=== PATIENT | female | born 1975 | race Caucasian/White ===

== ENCOUNTER 2016-06-18 12:48 | Inpatient (IN) | payer OTHER ==
[~2016-06-18] VITALS: Ht 165.1 cm; Wt 70.5 kg
[~2016-06-18 12:48] MED LIST: HYDR-4150 PO; IMI25 PO
[2016-06-18 12:51] VITALS: BP 139/95; PULSE 94; RESP 18; O2SAT 97
--- NOTE | 2016-06-18 12:58 | ED.REPORT ---
HPI-Abd Pain F Under 42 Date of Service Jun 18, 2016 ED Provider: Lynn Carolina MD 40 year old female with a hx of cholecystectomy ad ruptured ovarian cyst who presents to the ED with severe epigastric abd pain with radiation to the back since 10:30 this AM. Associated symptoms include nausea, vomiting and diarrhea. She states these symptoms come in "waves." Pt was seen for this 1 weeek ago at [facility]. Records requested. Over the last week she has had a decreased appetite but has been otherwise normal since the last episode. Nursing Notes Stated Complaint: NAUSEA/STOMACH PAIN Chief Complaint: Female Abdominal Pain Nursing Notes Reviewed: Yes Allergies: Coded Allergies: No Known Allergies (Verified , 09/19/14) Scheduled PRN Hydrocodone-Acetaminophen 5-325 mg (Hydrocodone-Acetaminophen 5-325 mg) 1 Each Tablet 1-2 TABLET PO DAILY PRN PRN migraines Sumatriptan (Imitrex) 25 Mg Tablet 25 MG PO PRN PRN PRN MIGRAINES General Time Seen by MD: 12:57 Chief Complaint Abdominal pain Hx Obtained From: Patient Arrived By: Walk-in Sudden in Onset?: Yes Onset Occurred: 1 - 4 hours ago Symptom Duration: Since onset Location: : Epigastric Quality: Painful Radiation: : Flank left Severity: Current: Moderate Associated with: Reports: Nausea, Vomiting, Denies: Fever Pertinent Negative: Exacerbated by nothing Recent Healthcare: Recent doctor visit Past Medical History Past Medical History Healthy Reports: Migraines Past Surgical History Ruptured ovarian cyst Reports: , Cholecystectomy Smoking History Never Smoker Social History Alcohol Use: "Social" Drug Use: THC Ambulatory Status Independent Review of Systems Basic Review of Systems Eyes: Vision NL, No discharge ENT: Hearing NL, No pain, No nasal congestion, No pharyngeal pain Allergy / Immune: No allergy Neurologic: NL mental status, No weakness, No numbness Psychiatric: Normal thought content Constitutional: Denies: Fever Respiratory: Denies: Shortness of breath Cardiovascular: Denies: Chest pain GI: Reports: Abdominal pain, Diarrhea, Nausea, Vomiting Female: Reports: Flank pain, Denies: Dysuria Complete sys rev & neg: except as marked. Physical Exam Initial Vital Signs Vital Signs (First) Date Time Temp Pulse Resp B/P Pulse Ox O2 Delivery O2 Flow Rate FiO2 06/18/16 12:51 36.6 94 18 139/95 97 Room Air Initial VS: Reviewed Head / Eyes: Atraumatic, Normocephalic, PERRL ENT: Mucous membranes moist, Conjunctiva normal, No scleral icterus Neck: Supple, Full range of motion Extremities: Vascular intact, Neuro intact Skin: Warm, Dry, No cyanosis Neurologic: Alert, Oriented, Nonfocal Psychiatric: Mood/affect normal, Behavior normal, Normal thought content General/Constitutional: Awake, Alert Distress / Hydration: Positive: Distress moderate Respiratory / Chest: Breath sounds NL, Breath sounds = bilat, No respiratory distress, No rales, No rhonchi, No wheezing Cardiovascular: Heart rate NL, Regular rhythm, Heart sounds NL, Peripheral circulation NL Abdomen: Soft, No guarding Epgastric and RUQ tenderness with radiation to the RLQ. Back: Atraumatic, Inspection NL, No CVA tenderness Interpretation & Diagnostics Negative Negative Udip Lab Results Interpretation Result Diagram: 06/18/16 1325 06/18/16 1325 Test 06/18/16 13:21 06/18/16 13:25 Urine Color Straw (YELLOW) Urine Appearance Hazy (CLEAR,HAZY) Urine pH 7.5 (5.0-8.0) Urine Specific [place] 1.015 (1.003-1.035) Urine Protein Negativemg/dL (NEG,TRACE) Urine Glucose (UA) Negativemg/dL (NEGATIVE) Urine Ketones Negativemg/dL (NEGATIVE) Urine Occult Blood Negative (NEGATIVE) Urine Nitrite Negative (NEGATIVE) Urine Bilirubin Negative (NEGATIVE) Urine Urobilinogen Normalmg/dL (NORMAL) Urine Leukocyte Esterase Negative (NEGATIVE) Urine RBC 0-2/hpf (0-2) Urine WBC 0-5/hpf (0-5) Urine Epithelial Cells Occasional/hpf (NONE-MOD) Urine Crystals None seen (NONE SEEN) Urine Bacteria Few/hpf (NONE-FEW) Urine Hyaline Casts None/lpf (NONE) Urine Granular Casts None seen (NONE SEEN) Urine Waxy Casts None seen (NONE SEEN) Urine Red Blood Cell Casts None seen (NONE SEEN) Urine White Blood Cell Casts None seen (NONE SEEN) Urine Mucus None seen (None Seen) Urine Trichomonas None seen (NONE SEEN) Urine Yeast None (NONE SEEN) Urinalysis Comment None Urine Culture Reflexed Not indicated White Blood Count 10.8th/mm3 (3.8-10.1) Red Blood Count 4.70mil/mm3 (3.90-5.20) Hemoglobin 14.4g/dL (12.0-15.6) Hematocrit 42.4% (35.0-46.0) Mean Corpuscular Volume 90.2fL (81-100) Mean Corpuscular Hemoglobin 30.6pg (27.0-35.0) Mean Corpuscular Hemoglobin Concent 34.0% (32.0-37.0) Red Cell Distribution Width 12.5% (12.3-15.4) Platelet Count 309bil/L (150-400) Neutrophils (%) (Auto) 70.7% (40-74) Lymphocytes (%) (Auto) 20.4% (14-46) Monocytes (%) (Auto) 6.8% (4-12) Eosinophils (%) (Auto) 1.6% (0-5) Basophils (%) (Auto) 0.2% (0-3) Sodium Level 138mEq/L (134-144) Potassium Level 3.9mEq/L (3.5-5.2) Chloride Level 100mEq/L (97-108) Carbon Dioxide Level 24mmol/L (18-29) Blood Urea Nitrogen 11mg/dL (6-20) Creatinine 0.62mg/dL (0.57-1.00) Estimat Glomerular Filtration Rate 154mL/min (>59) Glucose Level 93mg/dL (60-99) Calcium Level 9.3mg/dL (8.5-10.1) Magnesium Level 1.9mg/dL (1.6-2.6) Total Bilirubin 0.3mg/dL (0.0-1.2) Aspartate Amino Transf (AST/SGOT) 15U/L (0-50) Alanine Aminotransferase (ALT/SGPT) 11U/L (0-32) Alkaline Phosphatase 59U/L (25-150) Total Protein 7.6g/dL (6.4-8.4) Albumin 4.3g/dL (3.4-5.0) Lipase 24U/L (13-60) General Lab Results Interp 1: Labs reviewed ECG Interpretation Time: 13:20 Interpreted by: ED physician Normal ECG Interpretation: Normal rate (67), Normal sinus rhythm, No acute ischemic changes, Normal QRS, Normal axis, Normal intervals, Adequate tracing CT Abd / Pelvis Interpretation IMPRESSION: 1. Small bowel obstruction. There is a transition point between dilated and nondilated small bowel within the left hemiabdomen. There is thickened small bowel at the transition zone, consistent with ischemia versus infection versus inflammation versus neoplasm. 2. Normal appendix. 3. No change in medial segment left hepatic lobe focal nodular hyperplasia. 4. New mild intrahepatic biliary ductal dilatation following cholecystectomy. This is likely a normal finding, unless there is clinical/laboratory evidence of biliary obstruction. 5. Normal appendix. Dictated by: Tuan Renee M.D. on 06/18/2016 at 14:42 Study type: Abdominal CT IV contrast Interpretation / Wet Read by: Interpret - Radiologist Re-Eval/Medical Decision Med Decision/Clinical Course Med Decision/Clinical Course: Presents with acute abdominal pain. CT scan is consistent with a small bowel obstruction with clear demarcation point in the proximal small bowel. Unclear etiology only previous surgery is been a laparoscopic colon. Concern for inflammation necrosis and cancer are all reviewed with the patient. Dr. Preston has recommended NG tube and this is also reviewed with the patient. She will be admitted to the hospitalist service questions are answered Re-Evaluation/Progress #1: Time of Eval: 13:56 Re-Evaluation/Progress Note: Pt's pain has improved. She appears more comfortable. Re-Evaluation/Progress #2: Time of Eval: 15:03 Re-Evaluation/Progress Note: Pt updated of CT findings of SBO and labs. Consultation #1: Referral / Consult Name: Yoshi Preston MD Consulted With: Surgeon Call Returned at: 15:05 Note: Request a NG tube. Will consult. Consultation #2: Referral / Consult Name: Young Nash MD Consulted With: Hospitalist Call Returned at: 15:27 Document Design Specialist: Will see patient, Agrees with eval, Agrees with plan, Accepts admit Counseled Regarding: Diagnosis, Lab results, Need for admission Discharge & Departure Primary Impression: Small bowel obstruction Disposition: ADMITTED TO HOSPITAL Discharge Condition All VS Reviewed: Yes Referrals: Galileo Zambrano MD (PCP) Scribe Attestation Portions of this note were transcribed by Ofelia Topete. I, (Dr. Carolina) personally performed the history, physical exam and medical decision-making; I reviewed and confirmed the accuracy of the information in the transcribed note. Signed by: Ofelia Topete. 06/18/2016, 1322 copies to: Galileo Zambrano MD, Shawna L MD Jun 18, 2016 12:58 Ofelia Topete Jun 18, 2016 13:05
[2016-06-18] MEDS ORDERED: 0.9% Sodium Chloride 1,000 ML IV ONE (13:06)
[2016-06-18] MEDS ORDERED: Ondansetron 2 mg/mL 2 mL Inj IVPUSH ONE (13:10)
[2016-06-18 13:50] LABS: BASOPHILS % (AUTO) 0.2 % (0-3); EOSINOPHILS % (AUTO) 1.6 % (0-5); MONOCYTES % (AUTO) 6.8 % (4-12); Mean Corpuscular Hemoglobin 30.6 pg (27.0-35.0); Mean Corpuscular Volume 90.2 fL (81-100); NEUTROPHILS % (AUTO) 70.7 % (40-74); Platelet Count 309 bil/L (150-400)
[2016-06-18] MEDS: HYDROmorphone 0.5 mg/0.5 mL iSecure Syringe IVPUSH PRN ×3 (13:51→16:00)
[2016-06-18 13:56] LABS: APPEARANCE,URINE HAZY (CLEAR,HAZY); COLOR,URINE STRAW (YELLOW); OCCULT BLOOD,URINE NEGATIVE (NEGATIVE); PH,URINE 7.5 (5.0-8.0); UROBILINOGEN,URINE NORMAL (NORMAL)
[2016-06-18 14:10] LABS: Magnesium 1.9 mg/dL (1.6-2.6)
--- NOTE | 2016-06-18 14:44 | DRSVH ---
PROCEDURE: CT ABDOMEN AND PELVIS WITH CONTRAST ([id number]) INDICATIONS: acute abdominal pain TECHNIQUE: After the administration of intravenous contrast, 5 mm thick sections acquired from the diaphragm to the symphysis. 5 mm coronal and sagittal reformats were acquired. For radiation dose reduction, the following was used: automated exposure control, adjustment of mA and/or kV according to patient siz e. COMPARISON: [facility], MR, MR ABD W&WO CON, 03/27/2015, 14:31. [facility], CT, ABD/PELVIS W/CON (PNL), 03/13/2014, 13:58. FINDINGS: Image quality: Excellent. ABDOMEN: Lung bases: Lung bases are clear. Heart size is normal. Solid organs: As before, there is a mass within the medial segment left hepatic lobe inferiorly, whic h is not significantly changed in size, currently measuring roughly 47 mm, with a central scar, consi stent with focal nodular hyperplasia. Liver and spleen are otherwise normal in size and enhancement. Gallbladder is within normal limits. Biliary system is mildly distended, new since the prior examin ation. Pancreas enhances normally. No adrenal nodules. Kidneys demonstrate normal size and enhancem ent, without hydronephrosis. Peritoneum and bowel: This film is moderately distended. The duodenum is nondistended. There is moder ate distention of several proximal small bowel loops within the left hemiabdomen. There is a transiti on between distended and nondistended small bowel within the left hemiabdomen anteriorly, at which si te there is moderately thickened small bowel. The distal small bowel is nondistended. Appendix is nor mal. Colon is nondistended.. No pneumoperitoneum. Small amount of free fluid within the pelvis. Smal l amount of interloop fluid within the central and left abdomen interposed between dilated small giovanny l loops. Nodes and vessels: No retroperitoneal or mesenteric adenopathy by size criteria. Aorta and inferior vena cava are normal in size. Miscellaneous: No ventral hernias. PELVIS: Genitourinary: Bladder wall thickness is normal. There is a 36 mm diameter right adnexal cyst. Miscellaneous: No inguinal hernias or adenopathy. Bones: No suspicious bony lesions. No vertebral body compression fractures. IMPRESSION: 1. Small bowel obstruction. There is a transition point between dilated and nondilated small bowel wi thin the left hemiabdomen. There is thickened small bowel at the transition zone, consistent with isc hemia versus infection versus inflammation versus neoplasm. 2. Normal appendix. 3. No change in medial segment left hepatic lobe focal nodular hyperplasia. 4. New mild intrahepatic biliary ductal dilatation following cholecystectomy. This is likely a normal finding, unless there is clinical/laboratory evidence of biliary obstruction. 5. Normal appendix. Dictated by: Tuan Renee M.D. on 06/18/2016 at 14:42 Approved by: Tuan Renee M.D. on 06/18/2016 at 14:42
[2016-06-18] MEDS ORDERED: HYDR-4003 PO (15:19)
[2016-06-18] MEDS ORDERED: HYDROmorphone PCA 0.2 mg/mL 30 mL Inj IV PRN (15:30)
[2016-06-18] MEDS ORDERED: HYDROmorphone 0.5 mg/0.5 mL iSecure Syringe IVPUSH PRN (15:30)
--- NOTE | 2016-06-18 15:31 | PCM.HPMED ---
Subjective Date of Service Jun 18, 2016 Primary Provider: Admitting Physician: Primary Care Physician: Galileo Zambrano MD Attending Physician: Chief Complaint: Severe epigastric pain History of Present Illness: 40 year old female with a hx of cholecystectomy ad ruptured ovarian cyst who presents to the ED with severe epigastric abd pain with radiation to the back since 10:30 this AM. Associated symptoms include nausea, vomiting and diarrhea. She states these symptoms come in "waves." Pt was seen for this 1 weeek ago at [facility]. Records requested. Over the last week she has had a decreased appetite but has been otherwise normal since the last episode. Review of Systems: Gen.: No fevers chills weight gain, 8# loss last 10d Eyes: no visual disturbances or blurring vision HEENT: No nose/throat drainage, no pain in ears or throat, no hearing loss Lymph: No lymph nodes noted Cardiac: No chest pain, orthopnea, PND, palpitations , pedal edema or dyspnea on exertion Pulmonary: no cough, wheezing or bringing up of sputum GI: No vomiting blood or black in the stool, ++anorexia nausea, pain, diarrhea : no dysuria hematuria urinary frequency or decrease in urine output Musculoskeletal: Joint swelling no joint pain no new muscle aches or back pain Neuro: No syncope, seizures no loss of consciousness no new focal weakness, numbness or tingling Psychiatric: No new insomnia or depression little anxious now Endocrine: No new heat or cold intolerances polyuria or polydipsia Hematology: No lymphadenopathy or easy bleeding or bruising noted skin: No new rashes, stasis dermatitis Allergies Coded Allergies: No Known Allergies (Verified , 09/19/14) PMH asthma Hx depression nonrubella immune GERD Surg- lap aline 2014 '96 ruptured ovarian cyst '98 Social History Hx Alcohol Use: Yes (1 WEEK) Hx Substance Use: No Smoking Status: Never Smoker Exam Vital Signs Vital Sign - Last Date Time Temp Pulse Resp B/P Pulse Ox O2 Delivery O2 Flow Rate FiO2 06/18/16 12:51 36.6 94 18 139/95 97 Room Air Exam Gen.- A+ O 3 no apparent distress. Heavy WF lying in bed nad Eyes- open conjunctiva clear, pupils equal nonicteric ENT- ears normal, nose normal, NG tube from L nare Neck- supple/trach midline Mouth- dention intact, mucus moist CVS- RRR no murmur or gallop Lungs CTA GI- NABS/NT soft Musc- moving 4 no obvious deformity Neuro- cranial nerves II through XII intact to gross examination, nonfocal Skin- warm and dry Psych- pleasant and appropriate, Lab and Diagnostics Labs LFTs WNL, lipase 24, urine clean Result Diagram: 06/18/16 1325 06/18/16 1325 X-Rays, CTs and MRIs CTabd/pelvis. personally reviewed by me 1. Small bowel obstruction. There is a transition point between dilated and nondilated small bowel within the left hemiabdomen. There is thickened small bowel at the transition zone, consistent with ischemia versus infection versus inflammation versus neoplasm. 2. No change in medial segment left hepatic lobe focal nodular hyperplasia. 3. New mild intrahepatic biliary ductal dilatation following cholecystectomy. This is likely a normal finding, unless there is clinical/laboratory evidence of biliary obstruction. 12-lead ECG Sinus rhythm with a rate of 67 QTC 408 ms personally reviewed by me Assessment & Plan 40-year-old female with history of cholecystectomy and ruptured ovarian cyst presenting with small bowel obstruction Abd pain- 2' SBO, hydromorphone for pain. n/v- zofran/NG SBO- NG/bowel rest. Thank you [facility] surgery consult Proph- DVT- SCD+LMWH, GI- famotidine IV Dispo- full code from home\\ Rx oxymetolazone for sinusitis from NG, cepacol for potetntial pharingytis. prn ativan IV for anxiety/insomnia. Young Nash MD Jun 18, 2016 15:31
[2016-06-18] MEDS ORDERED: HYDROcodone-APAP 5-325 mg Tablet PO PRN (16:05)
[2016-06-18] MEDS ORDERED: Alum-Mag Hydrox-Simeth 30 mL Suspension PO PRN (16:05)
[2016-06-18] MEDS ORDERED: Polyethylene Glycol (PEG) 17 Gm Powder PO PRN (16:05)
[2016-06-18] MEDS: Ondansetron 2 mg/mL 2 mL Inj IVPUSH PRN ×3 (16:06→21:39)
[2016-06-18] MEDS: 0.9% Sodium Chloride 1,000 ML IV SCH (16:06)
--- NOTE | 2016-06-18 16:35 | CONS ---
[address] [address] CONSULTATION REPORT PATIENT: SACHI POSADA : 1975 MR#: [id number] ADMIT: 06/18/2016 JOB ID: [id number] DATE OF SERVICE: 06/18/2016 REASON FOR CONSULTATION: The patient is seen in consultation at the request of Dr. Lynn Tovar of the emergency department regarding further evaluation and management of a partial small bowel obstruction. HISTORY OF PRESENT ILLNESS: The patient is an otherwise healthy 40-year-old female, who over the past week has been experiencing abdominal pain, nausea and vomiting. Last Thursday, she developed the acute onset of severe abdominal pain in the area of the epigastrium. This was accompanied by vomiting and diarrhea. This prompted a visit to the emergency department at our hospital. She was told that this was likely a bug and sent home. Her symptoms did improve somewhat, but she noted over the following week a loss of appetite. She has had some persistent mild nausea. Today, she ate lunch while at work and experienced acute onset of intense pain in the epigastrium accompanied by nausea. Prior to a week ago, she never experienced these symptoms. She does have a history of prior abdominal operations including laparoscopic cholecystectomy, resection of a ruptured ovarian cyst and also two C sections. In the emergency department, a CT was obtained which suggests a small bowel obstruction with transition point between dilated and nondilated loops within the left hemiabdomen. There is also thickened small bowel in the transition zone. PAST MEDICAL HISTORY: None. MEDICATIONS: None. ALLERGIES: None. PAST SURGICAL HISTORY: 1. Laparoscopic cholecystectomy just over two years ago. 2. x2. 3. Laparoscopic resection of a ruptured ov sometime in the . FAMILY HISTORY: Family history is reviewed and significant for diabetes and heart disease. REVIEW OF SYSTEMS: Full review of systems is obtained and as per HPI. The patient also endorses an 8-9 pound weight loss over the past week. Prior to that, she has experienced no weight loss and no symptoms. 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 She does not smoke. She drinks about two glasses of wine per week. PHYSICAL EXAMINATION: She is afebrile with a temperature of 36.6 degrees, heart rate of 94 beats per minute, blood pressure 139/95, satting 97% on room air with a respiratory rate of 18 breaths per minute. In general, she appears mildly uncomfortable but in no acute distress. Cardiovascular: She has a regular rate and rhythm. No appreciated murmurs, rubs, gallops. Pulmonary: Lungs clear to auscultation bilaterally. Vascular: She has no carotid bruit. Neck: She has no thyromegaly. Lymph: She has no cervical lymphadenopathy. GI: Her abdomen is soft, nondistended. She has focal tenderness to palpation in the epigastrium in the right upper quadrant. She has hyperactive bowel sounds. Extremities: Warm without significant edema. Skin is warm without rash. Neuro is grossly intact. Psych: Pleasant and appropriate. LABORATORIES: White blood cell count is 10.8, hematocrit is 42.4, platelet count 309. Her sodium is 138, her creatinine 0.62, her LFTs are within normal limits. Her lipase is also normal at . Her albumin is 12.3. IMAGING: CT scan is personally reviewed and as per the HPI. ASSESSMENT AND PLAN: This is a 40-year-old female with symptoms and radiographic findings suggestive of a partial small bowel obstruction. She does have a history of prior abdominal operations. I discussed the possible etiologies of small bowel obstruction with the patient. Most likely, this is related to adhesions from prior operations. The possibility of a neoplasm was also reviewed. The patient does have a mass within the liver but this is stable compared to prior radiographs and likely completely unrelated to this episode. At this point, I recommend conservative management with NG tube placement. I will continue to follow along. I anticipate that she will get through this with nonoperative management.
[2016-06-18 17:14] VITALS: BP 117/76; PULSE 16; RESP 16
[2016-06-18] MEDS ORDERED: Benzocaine-Menthol Lozenge 2/Pkg PO PRN (18:10)
--- NOTE | 2016-06-18 19:27 | NUR ---
Arrival to 1026 Pt arrival to 1026 at 1710, NG tube to low intermittent suction with brown output; pt reports pain 5/10 and mild nausea. After an hour pt had increasing nausea and was requesting more Zofran. CONDUCTOR FREIGHT of Dilaudid set up for pain control. Pt concerned about childcare for her daughter. Diet is NPO with ice chips allowed. Hourly rounding to continue.
[2016-06-18 19:50] VITALS: BP 118/77; PULSE 17; PULSE 79; RESP 16; O2SAT 98
[2016-06-18] MEDS: D5 0.45% NaCl + KCl 20 mEq/L 1,000 ML IV SCH (19:50)
[2016-06-18 20:00] VITALS: RESP 16; O2SAT 98
[2016-06-18] MEDS: Famotidine Inj 20 MG in IV Premix 1 EACH IV SCH (20:33)
[2016-06-19] VITALS (12 sets, daily range): BP systolic 100–103; BP diastolic 62–70; PULSE 64–98; RESP 14–18; O2SAT 97–100
[2016-06-19] MEDS: 0.9% Sodium Chloride 1,000 ML IV SCH ×3 (01:26→19:11)
[2016-06-19] MEDS: D5 0.45% NaCl + KCl 20 mEq/L 1,000 ML IV SCH ×3 (02:04→22:04)
--- NOTE | 2016-06-19 02:31 | NUR ---
Nausea/Vomiting Had some nausea at start of shift and mod.emesis.Zofran adm.and eff.Abd. soft yet tender with hypoactive BT.Denies passing flatus.NG pat.VSS.Good pain control with SKETCHER dilaudid yet c/o slight nausea when she pushes her button.States this resolves quickly and has had no further emesis.Sleeping soundly at this time and resting comfortably.Will cont. to monitor.
[2016-06-19 07:37] LABS: BASOPHILS % (AUTO) 0.2 % (0-3); EOSINOPHILS % (AUTO) 2.4 % (0-5); MONOCYTES % (AUTO) 7.3 % (4-12); Mean Corpuscular Hemoglobin 30.4 pg (27.0-35.0); Mean Corpuscular Volume 91.5 fL (81-100); NEUTROPHILS % (AUTO) 65.1 % (40-74); Platelet Count 255 bil/L (150-400)
[2016-06-19] MEDS: Famotidine Inj 20 MG in IV Premix 1 EACH IV SCH ×2 (10:52→20:29)
--- NOTE | 2016-06-19 10:52 | PROG NOTE ---
[address] [address] PROGRESS NOTE PATIENT: SACHI POSADA : 1975 MR#: [id number] ADMIT: 06/18/2016 JOB ID: [id number] DATE: 06/19/2016 PROGRESS NOTE: The patient is seen in followup for small bowel obstruction. She had some episodes of nausea and vomiting overnight indicating that the NG tube was not functioning. However, this morning she feels much better with resolution of her pain. She has remained afebrile and hemodynamically normal. This morning, she was alert, oriented, and comfortable. Her abdomen is soft, nontender, nondistended. I interrogated her NG tube, and it is working fine. Yesterday, she had only 100 cc output recorded for the NG tube. LABORATORY STUDIES: Her white blood cell count has normalized to 6.1. Her hematocrit is stable at 38.8. Her creatinine is 0.58. ASSESSMENT AND PLAN: This is a 40-year-old female admitted with a small bowel obstruction . Overall, she is doing well. I recommend a Gastrografin challenge. I suggest administering 100 cc of Gastrografin through the nasogastric tube and then clamp the nasogastric tube for as long as tolerated. Followup film could be obtained in 4 hours. If the contrast is in the colon, the NG tube could be removed at that point. If not, then I would obtain a followup film 20 hours after that first film. I will continue to follow along. MOHAW[facility] VALLEY HEALTH SYSTEMIvana
[2016-06-19] MEDS: Ondansetron 2 mg/mL 2 mL Inj IVPUSH PRN ×2 (12:39→18:02)
--- NOTE | 2016-06-19 14:07 | PCM.PNMED ---
Subjective Date of Service Jun 19, 2016 Subjective NG output noted 350cc, yellowish biliary fluid pt felt much better after NG in denied n/v, abd pain 08/22, Exam Vital Signs Vital Sign - Last Date Time Temp Pulse Resp B/P Pulse Ox O2 Delivery O2 Flow Rate FiO2 06/19/16 13:06 36.6 66 16 101/70 100 Room Air Intake and Output 06/18/16 06/18/16 06/19/16 Cumulative From/Thru 15:00 23:00 07:00 06/18/16 12:51 - 06/19/16 05:44 Intake Total 1000 ml 20 ml 1023 ml 2043 ml Output Total 100 ml 100 ml Balance 1000 ml -80 ml 1023 ml 1943 ml Intake Oral 20 ml 20 ml IV Total 1000 ml 1023 ml 2023 ml Output Gastric Drainage Total 100 ml 100 ml IVs and Medications Medications Reviewed: Medications were reviewed in detail Lab and Diagnostics Result Diagram: 06/19/16 0710 06/19/16 0710 X-Rays, CTs and MRIs CTabd/pelvis. personally reviewed by me 1. Small bowel obstruction. There is a transition point between dilated and nondilated small bowel within the left hemiabdomen. There is thickened small bowel at the transition zone, consistent with ischemia versus infection versus inflammation versus neoplasm. 2. No change in medial segment left hepatic lobe focal nodular hyperplasia. 3. New mild intrahepatic biliary ductal dilatation following cholecystectomy. This is likely a normal finding, unless there is clinical/laboratory evidence of biliary obstruction. 12-lead ECG Sinus rhythm with a rate of 67 QTC 408 ms personally reviewed by me Assessment & Plan 40-year-old female with history of cholecystectomy and ruptured ovarian cyst presenting with small bowel obstruction acute, active #abd pain, POA, secondary to SBO, likely adhesion from previous surgery, improving with NG decompression -appreciate input, will get Gastrografin study per protocol -continue IVF n/s 100cc/hr -hydromorphone for pain. -zofran prn for n/v dispo: 1-2more days diet: NPO Full code dvt ppx: LMWH GI ppx: famotidine Time spent 35min Wang Mena MD Jun 19, 2016 14:07
--- NOTE | 2016-06-19 17:05 | DRSVH ---
PROCEDURE: X-RAY GASTROGRAFIN CHALLENGE, 1 VIEW ABDOMEN INDICATIONS: SMALL BOWEL OBSTRUCTION TECHNIQUE: One view of the abdomen acquired. COMPARISON: None. FINDINGS: Surgical changes and devices: None. Bowel: Bowel gas pattern is normal. Soft tissues: No suspicious abdominal calcifications. Visualized solid organ contours appear normal in size. Bones: No suspicious bony lesions. IMPRESSION: No visualized obstruction. Dictated by: Jessica Hidalgo M.D. on 06/19/2016 at 17:03 Approved by: Jessica Hidalgo M.D. on 06/19/2016 at 17:03
--- NOTE | 2016-06-19 18:36 | NUR ---
Nausea/NG/FLORES NG tube on low, int suction continuing to drain over course of day, 350ml brownish liquid turning to green after gastrographin procedure. Pt having increasing nausea over course of day and medications given. Pt now having c/o headache 8/10 pain, paged for IV Tylenol order and material handler floorperson RN notified. Continue to monitor.
[2016-06-19] MEDS ORDERED: Acetaminophen IV 1,000 MG in IV Premix 1 EACH IV PRN (19:00)
[2016-06-20 00:11] VITALS: BP 114/76; PULSE 69; RESP 16; O2SAT 99
--- NOTE | 2016-06-20 03:54 | NUR ---
NG Tube Surgery paged per hospitalist regarding results of gastrografin with no evidence of SBO. Orders to clamp NG x4 hours and check residuals with instructions to d/c NG tube if residuals less than 200ml. After 4 hours residuals 20ml without any GI complaints. NG d/c intact. No further GI complaints at this time. Will advance diet to water per MD and if tolerating will advance diet per morning doctors.
[2016-06-20 04:36] VITALS: BP 107/73; PULSE 75; RESP 18; O2SAT 99
[2016-06-20 05:54] VITALS: RESP 16; O2SAT 98
[2016-06-20 06:51] LABS: BASOPHILS % (AUTO) 0.2 % (0-3); MONOCYTES % (AUTO) 9.2 % (4-12); Mean Corpuscular Hemoglobin 30.6 pg (27.0-35.0); Mean Corpuscular Volume 92.8 fL (81-100); NEUTROPHILS % (AUTO) 57.9 % (40-74); Platelet Count 252 bil/L (150-400)
[2016-06-20 07:23] LABS: Magnesium 1.9 mg/dL (1.6-2.6); Phosphorus 2.7 mg/dL (2.5-4.9)
[2016-06-20] MEDS: 0.9% Sodium Chloride 1,000 ML IV SCH (07:26)
[2016-06-20] MEDS: Famotidine Inj 20 MG in IV Premix 1 EACH IV SCH (07:35)
[2016-06-20 07:39] VITALS: RESP 18; O2SAT 94
[2016-06-20] MEDS: D5 0.45% NaCl + KCl 20 mEq/L 1,000 ML IV SCH (07:41)
--- NOTE | 2016-06-20 10:24 | NUR ---
GI Patient was able to drink 800 ml of water. Denies nausea. No emesis noted. Denies abdominal pain. Dr. Mena was made aware. Diet order received. Addendum: 06/20/16 at 1054 by TRUDY MARES RN DIET Tolerated clear liquids. Denies nausea. No emesis noted. Denies abdominal pain. Addendum: 06/20/16 at 1309 by TRUDY MARES RN DIET Tolerated general diet without any issues noted. Denies nausea. No emesis noted. Denies abdominal pain.
--- NOTE | 2016-06-20 10:51 | PCM.PNSURG ---
Subjective Date of Service: Jun 20, 2016 Date of Service: Jun 20, 2016 Visit Information: Reason for Visit SBO Date of Admission: Jun 18, 2016 at 15:41 Hospital Day # 3 Subjective: Gastrografin study negative for small bowel obstruction. NG tube removed yesterday. The patient denies nausea or vomiting. Tolerating clear liquids. Positive for bowel movement. Denies abdominal pain Postop General: No Complaints Gastrointestinal: Tolerating Oral Feedings, No N/V Pain Management: IV Push (Tylenol) Postop Activity: Ambulating Independently Objective Vital Sign- Last 8 Hours Date Time Temp Pulse Resp B/P Pulse Ox O2 Delivery O2 Flow Rate FiO2 06/20/16 07:39 18 94 06/20/16 05:54 16 98 06/20/16 04:36 36.6 75 18 107/73 99 Room Air Intake and Output- Last 8 Hour 06/20/16 Cumulative From/Thru 07:00 06/18/16 12:51 - 06/20/16 05:45 Intake Total 1127 ml 4388 ml Output Total 550 ml 1900 ml Balance 577 ml 2488 ml Intake Oral 100 ml 120 ml IV Total 1027 ml 4268 ml Output Urine Total 550 ml 1450 ml Gastric Drainage Total 450 ml # Bowel Movements 0 0 General: Alert, Oriented X3 Lungs: Clear to Auscultation Heart: Regular Rate/Rhythm Abdomen: Benign, Soft, Non-tender, Non-distended, Normoactive bowel tones Extremities: Warm, Thigh&Calf Soft/Nontender Neuro: Cranial Nerves 2-12 nl Catheters: None Result Diagram: 06/20/16 0620 06/20/16 0620 Diagnostics: 06/19/15 PROCEDURE: X-RAY GASTROGRAFIN CHALLENGE, 1 VIEW ABDOMEN INDICATIONS: SMALL BOWEL OBSTRUCTION FINDINGS: Surgical changes and devices: None. Bowel: Bowel gas pattern is normal. Soft tissues: No suspicious abdominal calcifications. Visualized solid organ contours appear normal in size. Bones: No suspicious bony lesions. IMPRESSION: No visualized obstruction Assessment & Plan Impression Primary diagnosis: Small bowel obstruction - resolved Secondary diagnoses: History of cholecystectomy laparoscopic 2014 History of ruptured ovarian cyst 1997 Asthma History of 1995 with depression GERD Problems: Plan 1. Advance diet as tolerated 2. May discharge from general surgery perspective Pain Management: IV Dilaudid when necessary Resuscitation Status: CPR: Attempt Resuscitation Chioma Malik PA-C Jun 20, 2016 10:51
--- NOTE | 2016-06-20 12:02 | PCM.DIMED ---
Discharge Instructions Date of Service Jun 20, 2016 Dates of Hospitalization Jun 18, 2016 at 15:41 Discharge Diagnosis Discharge Diagnosis Small Bowel Obstruction Diet No restrictions Activity No restrictions Patient Instructions You were hospitalized with small bowel obstruction likely due to adhesion from your previous surgery, you received Nasogastric decompression, IV fluid appropriately, symptoms subsequently resolved. Please advance diet slowly as you tolerate Follow-up plan Please follow up with you doctor in 2weeks Follow-up Provider: Galileo Zambrano MD Follow-up with PCP in: 2 weeks Wang Mena MD Jun 20, 2016 12:02
--- NOTE | 2016-06-20 13:13 | NUR ---
DISCHARGE Patient denies pain. Tolerated general diet for lunch. Denies nausea. No emesis noted. Denies any abdominal pain after eating. Denies SOB. Patient has been ambulating independently in the room. Gait is steady. + BM yesterday per patient. IV saline lock d/cd. Discharge instructions and care notes was given to the patient and she verbalized understanding. Discharged to home with her significant other and all her personal belongings. (Copy of D/C is in the chart).
--- NOTE | 2016-06-22 15:37 | PCM.DC.MED ---
Discharge Summary Date of Service Jun 20 2016 Dates of Hospitalization Date of Hospital Admission Jun 18, 2016 at 15:41 Date of Discharge: Jun 20, 2016 Providers: Admitting Physician: Young Nash MD Primary Care Physician: Galileo Zambrano MD Attending Physician: Young Nash MD Diagnosis at Time of Discharge Diagnosis at Time of Discharge Small Bowel Obstruction, conservatively treated Consultations Gen. surgery Procedures XRay, CTs & MRIs CTabd/pelvis. personally reviewed by me 1. Small bowel obstruction. There is a transition point between dilated and nondilated small bowel within the left hemiabdomen. There is thickened small bowel at the transition zone, consistent with ischemia versus infection versus inflammation versus neoplasm. 2. No change in medial segment left hepatic lobe focal nodular hyperplasia. 3. New mild intrahepatic biliary ductal dilatation following cholecystectomy. This is likely a normal finding, unless there is clinical/laboratory evidence of biliary obstruction. ECG 12 Lead Sinus rhythm with a rate of 67 QTC 408 ms personally reviewed by me Brief History H&P performed by ON 06/18 40 year old female with a hx of cholecystectomy ad ruptured ovarian cyst who presents to the ED with severe epigastric abd pain with radiation to the back since 10:30 this AM. Associated symptoms include nausea, vomiting and diarrhea. She states these symptoms come in "waves." Pt was seen for this 1 weeek ago at [facility]. Records requested. Over the last week she has had a decreased appetite but has been otherwise normal since the last episode. Hospital Course 40-year-old female with history of cholecystectomy and ruptured ovarian cyst presenting with small bowel obstruction #abd pain, POA, secondary to SBO, likely adhesion from previous surgery, patient was evaluated by surgery, symptoms greatly improved with NG decompression, follow-up Gastrografin challenge showed resolution of obstruction , diet was advanced and tolerated well, deemed safe for d/c Exam Vital Signs (Last) Date Time Temp Pulse Resp B/P Pulse Ox O2 Delivery O2 Flow Rate FiO2 06/20/16 07:39 18 94 06/20/16 04:36 36.6 75 107/73 Room Air Exam NAD, comfortably laying down on the bed no JVD, MMM, no LAD RRR, nl s1, s2 no mrg CTAB, no w,c S,ND,NT,normoactive BS+ warm, no edema, pulses 2/2 Test 06/18/16 13:21 06/18/16 13:25 06/20/16 06:20 Urine Color Straw (YELLOW) Urine Appearance Hazy (CLEAR,HAZY) Urine pH 7.5 (5.0-8.0) Urine Specific Bynum 1.015 (1.003-1.035) Urine Protein Negativemg/dL (NEG,TRACE) Urine Glucose (UA) Negativemg/dL (NEGATIVE) Urine Ketones Negativemg/dL (NEGATIVE) Urine Occult Blood Negative (NEGATIVE) Urine Nitrite Negative (NEGATIVE) Urine Bilirubin Negative (NEGATIVE) Urine Urobilinogen Normalmg/dL (NORMAL) Urine Leukocyte Esterase Negative (NEGATIVE) Urine RBC 0-2/hpf (0-2) Urine WBC 0-5/hpf (0-5) Urine Epithelial Cells Occasional/hpf (NONE-MOD) Urine Crystals None seen (NONE SEEN) Urine Bacteria Few/hpf (NONE-FEW) Urine Hyaline Casts None/lpf (NONE) Urine Granular Casts None seen (NONE SEEN) Urine Waxy Casts None seen (NONE SEEN) Urine Red Blood Cell Casts None seen (NONE SEEN) Urine White Blood Cell Casts None seen (NONE SEEN) Urine Mucus None seen (None Seen) Urine Trichomonas None seen (NONE SEEN) Urine Yeast None (NONE SEEN) Urinalysis Comment None Urine Culture Reflexed Not indicated Lipase 24U/L (13-60) White Blood Count 5.3th/mm3 (3.8-10.1) Red Blood Count 4.05mil/mm3 (3.90-5.20) Hemoglobin 12.4g/dL (12.0-15.6) Hematocrit 37.6% (35.0-46.0) Mean Corpuscular Volume 92.8fL (81-100) Mean Corpuscular Hemoglobin 30.6pg (27.0-35.0) Mean Corpuscular Hemoglobin Concent 33.0% (32.0-37.0) Red Cell Distribution Width 12.3% (12.3-15.4) Platelet Count 252bil/L (150-400) Neutrophils (%) (Auto) 57.9% (40-74) Lymphocytes (%) (Auto) 29.5% (14-46) Monocytes (%) (Auto) 9.2% (4-12) Eosinophils (%) (Auto) 3.0% (0-5) Basophils (%) (Auto) 0.2% (0-3) Sodium Level 144mEq/L (134-144) Potassium Level 4.3mEq/L (3.5-5.2) Chloride Level 107mEq/L (97-108) Carbon Dioxide Level 26mmol/L (18-29) Blood Urea Nitrogen 5mg/dL (6-20) Creatinine 0.62mg/dL (0.57-1.00) Estimat Glomerular Filtration Rate 154mL/min (>59) Glucose Level 92mg/dL (60-99) Calcium Level 8.4mg/dL (8.5-10.1) Phosphorus Level 2.7mg/dL (2.5-4.9) Magnesium Level 1.9mg/dL (1.6-2.6) Total Bilirubin 0.4mg/dL (0.0-1.2) Aspartate Amino Transf (AST/SGOT) 103U/L (0-50) Alanine Aminotransferase (ALT/SGPT) 176U/L (0-32) Alkaline Phosphatase 84U/L (25-150) Total Protein 6.0g/dL (6.4-8.4) Albumin 3.7g/dL (3.4-5.0) Discharge Medications As needed Hydrocodone-Acetaminophen 5-325 mg (Hydrocodone-Acetaminophen 5-325 mg) 1 Each Tablet 1-2 TABLET PO DAILY PRN PRN migraines (Reported) Sumatriptan (Imitrex) 25 Mg Tablet 25 MG PO PRN PRN PRN MIGRAINES (Reported) Followup Plan Disposition: Home Follow-up plan Please follow up with you doctor in 2weeks Discharge Diet: No restrictions Discharge Activity: No restrictions Patient Instructions You were hospitalized with small bowel obstruction likely due to adhesion from your previous surgery, you received Nasogastric decompression, IV fluid appropriately, symptoms subsequently resolved. Please advance diet slowly as you tolerate Follow-up Provider: Galileo Zambrano MD Follow-up with PCP in: 2 weeks Time spent 65 minutes Wang Mena MD Jun 22, 2016 15:37
== END 2016-06-20 13:10 | disposition home or self-care (01) | DRG 390 ==
LOC: SED 12:48 → UNDOADMIN 15:41 → MPC 15:41 → OSC 15:41
PROVIDERS: ADMIT Hospitalist; ATTEND Hospitalist
DX: K56.60 Unspecified intestinal obstruction (principal); K21.9 Gastro-esophageal reflux disease without esophagitis; Z90.49 Acquired absence of other specified parts of digestive tract; Z98.890 Other specified postprocedural states; F41.9 Anxiety disorder, unspecified; G47.00 Insomnia, unspecified

== ENCOUNTER 2017-01-23 09:29 | Emergency (ER) | payer OTHER ==
[~2017-01-23] VITALS: Ht 165.1 cm; Wt 77.3 kg
[~2017-01-23 09:29] MED LIST changes: +HYDR-4003 PO; -HYDR-4150 PO
[2017-01-23 09:32] VITALS: BP 125/79; PULSE 72; RESP 10; O2SAT 99
--- NOTE | 2017-01-23 09:41 | ED.REPORT ---
HPI-Headache Date of Service Jan 23, 2017 ED Provider: Bill Barlow DO The pt is a 41 y/o 12 weeks female () with a hx of migraines who presents to the ED complaining of a headache, onset 5 days ago. Associated sx include vomiting and dizziness that started about 7 hours ago. Her dizzy spells are sporadic and are not associated with specific head movements. She describes it as the whole room spinning. Her current sx are atypical because her nausea is significantly worse and she has never had dizzy spells with previous migraines. Her last migraine was about 7 months ago. She took a Zofran, a couple of Ibuprofen, a Vicodin today and "a lot of Tylenol this week". She denies fever, chills and vaginal bleeding. Her last ultrasound was seven weeks ago. There are not other complaints at this time. Nursing Notes Stated Complaint: MIGRAINE/DIZZY Chief Complaint: Headache Nursing Notes Reviewed: Yes Allergies: Coded Allergies: No Known Allergies (Verified , 09/19/14) Scheduled PRN Hydrocodone-Acetaminophen 5-325 mg (Hydrocodone-Acetaminophen 5-325 mg) 1 Each Tablet 1-2 TABLET PO DAILY PRN PRN migraines Metoclopramide (Reglan) 10 Mg Tablet 10 MG PO QID PRN PRN Headache Sumatriptan (Imitrex) 25 Mg Tablet 25 MG PO PRN PRN PRN MIGRAINES General Time Seen by MD: 09:38 Chief Complaint Headache Hx Obtained From: Patient Arrived By: Walk-in Sudden in Onset?: No Onset Occurred: 5 days ago Symptom Duration: Since onset Location: : Generalized Quality: Painful Radiation: : Does not radiate Severity: Current: Moderate Severity: Maximum: Moderate Recent Healthcare: No recent doctor visit Similar Sx Previous: Yes Past Medical History Past Medical History Migraines Bowel obstruction Past Surgical History Ruptured ovarian cyst Reports: , Cholecystectomy Smoking History Never Smoker Social History Alcohol Use: "Social" Drug Use: THC Ambulatory Status Independent Review of Systems Constitutional: Denies: Chills, Fever GI: Reports: Nausea, Vomiting Neurologic: Reports: Dizziness, Headache Complete sys rev & neg: except as marked. Female: Reports: , Denies: Vaginal bleeding - abnl Physical Exam Initial Vital Signs Vital Signs (First) Date Time Temp Pulse Resp B/P Pulse Ox O2 Delivery O2 Flow Rate FiO2 8/11/17 09:32 37.0 72 10 125/79 99 Room Air Initial VS: Reviewed Respiratory: Breath sounds normal, Clear to auscultation, No respiratory distress Cardiovascular: Regular rate & rhythm, Heart sounds normal, Intact distal pulses Abdomen / GI: Soft, Non-tender Extremities: Vascular intact, Neuro intact, No swelling, No tenderness Skin: Warm, Dry, No cyanosis General/Constitutional: Awake, Alert, Cooperative Distress / Hydration: Positive: Distress moderate Appearance / Presentation: Positive: Uncomfortable Head / Eyes: Atraumatic, Normocephalic, PERRL Neck: Atraumatic, Supple, Full range of motion Neurologic: Oriented X3, Speech NL, No motor deficits, No sensory deficits Interpretation & Diagnostics PROCEDURE: MRA ANGIOGRAM HEAD WITHOUT CONTRAST ([id number]) IMPRESSION: 1. No focal stenosis or occlusion of the central intracranial arteries. Dictated by: Nabil Alvarado M.D. on 01/23/2017 at 13:59 Approved by: Nabil Alvarado M.D. on 01/23/2017 at 14:04 PROCEDURE: MRI BRAIN WITHOUT CONTRAST ([id number]) IMPRESSION: 1. No acute intracranial abnormality. Dictated by: Nabil Alvarado M.D. on 01/23/2017 at 13:53 Approved by: Nabil Alvarado M.D. on 01/23/2017 at 13:57 Lab Results Interpretation Result Diagram: 01/23/17 0955 01/23/17 0955 Test 01/23/17 09:55 01/23/17 11:48 01/23/17 13:04 01/23/17 13:30 White Blood Count 6.8th/mm3 (3.8-10.1) Red Blood Count 4.52mil/mm3 (3.90-5.20) Hemoglobin 13.8g/dL (12.0-15.6) Hematocrit 40.3% (35.0-46.0) Mean Corpuscular Volume 89.2fL (81-100) Mean Corpuscular Hemoglobin 30.5pg (27.0-35.0) Mean Corpuscular Hemoglobin Concent 34.2% (32.0-37.0) Red Cell Distribution Width 12.0% (12.3-15.4) Platelet Count 257bil/L (150-400) Neutrophils (%) (Auto) 56.1% (40-74) Lymphocytes (%) (Auto) 33.7% (14-46) Monocytes (%) (Auto) 7.0% (4-12) Eosinophils (%) (Auto) 2.8% (0-5) Basophils (%) (Auto) 0.1% (0-3) Prothrombin Time 9.7sec (8.1-12.5) Prothromb Time International Ratio 0.91ratio Sodium Level 136mEq/L (134-144) Potassium Level 3.8mEq/L (3.5-5.2) Chloride Level 99mEq/L (97-108) Carbon Dioxide Level 22mmol/L (18-29) Blood Urea Nitrogen 9mg/dL (6-20) Creatinine 0.51mg/dL (0.57-1.00) Estimat Glomerular Filtration Rate 192mL/min (>59) Glucose Level 92mg/dL (60-99) Calcium Level 9.2mg/dL (8.5-10.1) Hold Urine Received (Received) HCG Beta Subunit 5612mIU/mL Hold Sanchez Top Tube Received (Received) CT Head Interpretation IMPRESSION: No acute intracranial disease process. Dictated by: Carole Moise MD, PhD on 01/23/2017 at 12:02 Approved by: Carole Moise MD, PhD on 01/23/2017 at 12:04 Study: Head CT no contrast Interpretation / Wet Read by: Interpret - Radiologist Re-Eval/Medical Decision Med Decision/Clinical Course Patient presents complaining of a migraine which is not maximal at onset of progressively worsening, it is somewhat similar to prior migraines however has a component of vertiginous dizziness which is random and not associated with head movement. It does not sound consistent with BPPV. Concern for intracranial pathology. I did discuss the case with radiology given that because of her she is at increased risk for venous sinus thrombosis, their recommendation given the was CT brain without and MRI brain and MRA brain. These studies were all unremarkable. Patient does not wish to have further testing. After discussion with our neuroradiologist, Dr. Moise, there is a possibility of doing a venous phase MR contrast. The patient does not wish to have this done. She is feeling somewhat better and wishes to go home. We did discuss using Reglan at home in addition to Tylenol and following up with her A AND P TECHNICIAN as well as turning if her symptoms worsen or persist. Additionally, the patient has a low quantitative hCG and no evidence of heart tones. Suspected however patient will need further testing from A AND P TECHNICIAN. A AND P TECHNICIAN office is contacted and agrees to follow the patient up in the next few days. Source of Hx: Old records Re-Evaluation/Progress #1: Time of Eval: 10:21 Re-Evaluation/Progress Note: Rechecked pt. Discussed possible diagnosis and plan to do imaging. The pt understands and agrees with the plan. All questions answered. Re-Evaluation/Progress #2: Time of Eval: 10:48 )( Patient Status: Condition improved Re-Evaluation/Progress Note: Rechecked pt. Her headache is better but she is still dizzy. Re-Evaluation/Progress #3: Time of Eval: 12:27 Re-Evaluation/Progress Note: Rechecked pt. Discussed imaging. Bedside ultrasound done. Unable to find heart tone. No movement. Re-Evaluation/Progress #4: Time of Eval: 14:13 Re-Evaluation/Progress Note: Rechecked pt. Her headache has improved but not resolved. She wished to be discharged and will follow up if sx get worse. Discussed lab results, imaging results, diagnosis and plan to discharge. Pt understands and agrees with the plan. F/U instruction and RTER warning given. All questions addressed Consultation #1: Referral / Consult Name: Juan Novoa MD Call Returned at: 10:40 Note: Dr. Novoa recommends a CT brain without contrast and an MRA, if the CT is negative. Consultation #2: Referral / Consult Name: Galileo Zambrano MD Consulted With: Primary care physician Call Returned at: 14:04 Escalator Service Mechanic: Will see in office, Agrees with eval Note: Dr. Zambrano's chemistry research assistant is aware of the concern for miscarriage. He will see the pt next week. Counseled Regarding: Diagnosis, Lab results, Need for follow-up, When/why to return to ED Discharge & Departure Impression: Primary Impression: Headache Headache type: unspecified Headache chronicity pattern: acute headache Intractability: not intractable Qualified Code: R51 - Headache Additional Impression: Threatened miscarriage Disposition: Home Discharge Condition All VS Reviewed: Yes Condition: Stable Patient Instructions: Threatened Miscarriage (ED) Additional Instructions: So far all of your workup in the ER is reassuring in regard to your headache. We see no evidence of bleeding in your brain or stroke. After discussion with radiology, there is another test that could be performed called an MR venogram or CT venogram. If your headache is persistent or worsening you should return to the ER to have this test performed. Also, on bedside ultrasound we were unable to find your baby's heart rate. The quantitative hCG was 5612. This may represent a threatened miscarriage. You should call your A AND P TECHNICIAN today for a close follow-up appointment in order to have a repeat hormone level and probable repeat ultrasound in the next few days. Return to the ER if you develop worsening headache, other neurologic symptoms, heavy vaginal bleeding, or any other concerns Referrals: Galileo Zambrano MD (PCP) Scribe Attestation Portions of this note were transcribed by Alvin Tohmpson. I,, personally performed the history, physical exam and medical decision-making;I reviewed and confirmed the accuracy of the information in the transcribed note. Signed by Bebo Bar. 01/23/17 copies to: Galileo Zambrano MD, Timothy S DO Jan 23, 2017 09:41 Alvin Thompson Jan 23, 2017 09:54
[2017-01-23] MEDS ORDERED: 0.9% Sodium Chloride 1,000 ML IV ONE (09:49)
[2017-01-23] MEDS ORDERED: MetoCLOpramide 5 mg/mL 2 mL Inj IVPUSH ONE (09:50)
[2017-01-23 10:13] LABS: BASOPHILS % (AUTO) 0.1 % (0-3); EOSINOPHILS % (AUTO) 2.8 % (0-5); Mean Corpuscular Hemoglobin 30.5 pg (27.0-35.0); Mean Corpuscular Volume 89.2 fL (81-100); NEUTROPHILS % (AUTO) 56.1 % (40-74); Platelet Count 257 bil/L (150-400)
[2017-01-23 10:23] LABS: INR 0.91 ratio
--- NOTE | 2017-01-23 12:06 | DRSVH ---
PROCEDURE: CT BRAIN WITHOUT CONTRAST ([id number]) INDICATIONS: headache TECHNIQUE: Noncontrast 4.5 mm thick angled axial sections acquired from the foramen magnum to the vertex, with c oronal reformats. COMPARISON: None. FINDINGS: Image quality: Excellent. CSF spaces: Basal cisterns are patent. No extra-axial fluid collections. Ventricles are normal in size and shape. Brain: No midline shift. No intracranial masses or hemorrhage. Olivia-white matter interface is norm al. Skull and face: Calvarium and visualized facial bones are intact, without suspicious lesions. Sinuses: Visualized sinuses and mastoids are clear. IMPRESSION: No acute intracranial disease process. Dictated by: Carole Moise MD, PhD on 01/23/2017 at 12:02 Approved by: Carole Moise MD, PhD on 01/23/2017 at 12:04
[2017-01-23 12:21] VITALS: BP 86/56; PULSE 72; RESP 16; O2SAT 98
--- NOTE | 2017-01-23 13:59 | DRSVH ---
PROCEDURE: MRI BRAIN WITHOUT CONTRAST ([id number]) INDICATIONS: Headaches, 12 weeks TECHNIQUE: Noncontrast axial T1 spin echo, axial T2 fast spin echo, sagittal and axial FLAIR, coronal T2 fast sp in echo, axial gradient echo, axial diffusion and ADC through the brain. COMPARISON: [facility], MR, MR ANGIO HEAD WO [facility], 01/23/2017, 13:22. [facility], CT, CT BRAIN WO [facility], 01/23/2017, 11:47. FINDINGS: Image quality: Excellent. CSF Spaces: Basal cisterns are patent. No extra-axial fluid collections. Ventricles are normal in size and shape. Brain: No intracranial hemorrhage, mass, or mass effect. Olivia/white matter interface is preserved. Brainstem appears normal. Diffusion-weighted images demonstrate no acute infarcts. Normal intravas cular flow voids are present. Skull and face: Calvarium has normal marrow signal. Orbits appear normal. Sinuses: Sinuses and mastoids are clear. IMPRESSION: 1. No acute intracranial abnormality. Dictated by: Nabil Alvarado M.D. on 01/23/2017 at 13:53 Approved by: Nabil Alvarado M.D. on 01/23/2017 at 13:57
--- NOTE | 2017-01-23 14:05 | DRSVH ---
PROCEDURE: MRA ANGIOGRAM HEAD WITHOUT CONTRAST ([id number]) INDICATIONS: Headaches, 12 weeks TECHNIQUE: Noncontrast axial 3-D [id number] MR angiogram, with 3-dimensional maximum intensity projection (M IP) reformats of the internal carotid arteries and posterior circulation then performed. COMPARISON: None. FINDINGS: Image quality: Excellent. Anterior circulation: Intracranial internal carotid arteries demonstrate normal size and intralumina l flow signal. The flow within the paired anterior cerebral arteries is normal and symmetric. The f low within the middle cerebral arteries is normal and symmetric. The anterior communicating artery i s seen. No stenoses, occlusions, or aneurysms. Posterior circulation: Visualized portions of the vertebral arteries demonstrate normal caliber, and join to form a normal appearing basilar artery. The flow within the posterior cerebral arteries is normal and symmetric. No stenoses, occlusions, or aneurysms. IMPRESSION: 1. No focal stenosis or occlusion of the central intracranial arteries. Dictated by: Nabil Alvarado M.D. on 01/23/2017 at 13:59 Approved by: Nabil Alvarado M.D. on 01/23/2017 at 14:04
[2017-01-23] MEDS ORDERED: METO-301 PO (14:21)
[2017-01-23 14:48] VITALS: BP 112/67; PULSE 70; RESP 16
--- NOTE | 2017-01-23 18:31 | NUR ---
FHR: Attempted to find heart rate with hand held doppler at bedside around 1245 this afternoon. I was unable to locate any FHR. Nurse notified of findings.
== END 2017-01-23 14:50 | disposition home or self-care (01) ==
LOC: SED 09:29
DX: O20.0 Threatened abortion (principal); R51 Headache; G43.909 Migraine, unspecified, not intractable, without status migrainosus; Z3A.12 12 weeks gestation of pregnancy
CPT/HCPCS: 36415; 70450; 70544; 70551; 80048; 81025; 84702; 85025; 85610; 96361; 96374; 96375; 99285; J1200; J2765; J7030

== ENCOUNTER 2017-03-08 09:37 | Emergency (ER) | payer OTHER ==
[~2017-03-08] VITALS: Ht 165.1 cm; Wt 72.7 kg
[~2017-03-08 09:37] MED LIST changes: +METO-301 PO
[2017-03-08 09:45] VITALS: BP 122/87; PULSE 86; RESP 10; O2SAT 98
--- NOTE | 2017-03-08 09:59 | ED.REPORT ---
HPI-Abd Pain F Under 42 Date of Service Mar 08, 2017 ED Provider: Hernandez Vail MD The pt is a 41 y/o female with a hx of recent miscarriage (7 weeks ago) who presents to the ED complaining of abnormal vaginal bleeding for the last 4 days. She has been passing large clots. Associated sx include severe abdominal cramping, fatigue and generalized weakness. The pt reports difficulty sleeping and doing her daily activities due to the pain and weakness. She denies fever. In the ED, she is slightly uncomfortable but does not have significant pain as she took 1000mg Ibuprofen 2 hours ago. Nursing Notes Stated Complaint: ABDOMINAL PAIN/BLEEDING Chief Complaint: Female Abdominal Pain Nursing Notes Reviewed: Yes Allergies: Coded Allergies: No Known Allergies (Verified , 09/19/14) Scheduled PRN Hydrocodone-Acetaminophen 5-325 mg (Hydrocodone-Acetaminophen 5-325 mg) 1 Each Tablet 1-2 TABLET PO DAILY PRN PRN migraines Hydrocodone-Acetaminophen 5-325 mg (Hydrocodone-Acetaminophen 5-325 mg) 1 Each Tablet 1 TABLET PO Q4H PRN PRN For Pain Ibuprofen (Ibuprofen) 800 Mg Tablet 800 MG PO TID PRN PRN For Pain Metoclopramide (Reglan) 10 Mg Tablet 10 MG PO QID PRN PRN Headache Sumatriptan (Imitrex) 25 Mg Tablet 25 MG PO PRN PRN PRN MIGRAINES General Time Seen by MD: 09:55 Chief Complaint Other (vaginal bleeding) Hx Obtained From: Patient Arrived By: Walk-in Sudden in Onset?: Yes Onset Occurred: 4 days ago Symptom Duration: Since onset Location: : Suprapubic Quality: Cramping Radiation: : Does not radiate Severity: Current: Mild Severity: Maximum: Severe Recent Healthcare: Recent doctor visit Past Medical History Past Medical History Migraines Bowel obstruction Past Surgical History Ruptured ovarian cyst Reports: , Cholecystectomy Smoking History Never Smoker Social History Alcohol Use: "Social" Drug Use: THC Ambulatory Status Independent Review of Systems Constitutional: Reports: Fatigue, Weakness - generalized, Denies: Fever GI: Reports: Abdominal pain Female: Reports: Vaginal bleeding - abnl Complete sys rev & neg: except as marked. Physical Exam Physical Exam Notes: clots but not actively bleeding Initial Vital Signs Vital Signs (First) Date Time Temp Pulse Resp B/P Pulse Ox O2 Delivery O2 Flow Rate FiO2 03/08/17 09:45 37.0 86 10 122/87 98 Room Air Initial VS: Reviewed Head / Eyes: Atraumatic, Normocephalic Extremities: Vascular intact, Neuro intact, No swelling, No tenderness Skin: Warm, Dry, No cyanosis Neurologic: Alert, Oriented, Nonfocal General/Constitutional: Awake, Alert, No acute distress, Well appearing, Cooperative Respiratory / Chest: Atraumatic, Breath sounds NL, Breath sounds = bilat, No respiratory distress, No rales, No rhonchi, No wheezing Cardiovascular: Heart rate NL, Regular rhythm, Heart sounds NL, No gallop, No murmurs, No rubs Abdomen: Atraumatic, Soft, No guarding, No rebound Tenderness/Guarding/Rebound: Positive: Tender suprapubic Back: Atraumatic, Full range of motion, Painless range of motion, Non-tender Female Genitourinary: [employer] present, Atraumatic, External genitalia NL, No bleeding Clots without active bleeding Interpretation & Diagnostics Lab Results Interpretation Result Diagram: 03/08/17 1005 03/08/17 1005 Test 03/08/17 10:05 03/08/17 10:15 03/08/17 10:30 White Blood Count 9.0th/mm3 (3.8-10.1) Red Blood Count 4.18mil/mm3 (3.90-5.20) Hemoglobin 12.6g/dL (12.0-15.6) Hematocrit 37.9% (35.0-46.0) Mean Corpuscular Volume 90.7fL (81-100) Mean Corpuscular Hemoglobin 30.1pg (27.0-35.0) Mean Corpuscular Hemoglobin Concent 33.2% (32.0-37.0) Red Cell Distribution Width 12.6% (12.3-15.4) Platelet Count 219bil/L (150-400) Sodium Level 138mEq/L (134-144) Potassium Level 3.9mEq/L (3.5-5.2) Chloride Level 102mEq/L (97-108) Carbon Dioxide Level 26mmol/L (18-29) Blood Urea Nitrogen 10mg/dL (6-20) Creatinine 0.74mg/dL (0.57-1.00) Estimat Glomerular Filtration Rate 125mL/min (>59) Glucose Level 88mg/dL (60-99) Calcium Level 9.1mg/dL (8.5-10.1) Total Bilirubin 0.2mg/dL (0.0-1.2) Aspartate Amino Transf (AST/SGOT) 14U/L (0-50) Alanine Aminotransferase (ALT/SGPT) 35U/L (0-32) Alkaline Phosphatase 95U/L (25-150) Total Protein 7.0g/dL (6.4-8.4) Albumin 4.3g/dL (3.4-5.0) HCG Beta Subunit 4.31mIU/mL Hold Sanchez Top Tube Received (Received) Urine Color Bloody (YELLOW) Urine Appearance Turbid (CLEAR,HAZY) Urine pH 6.0 (5.0-8.0) Urine Specific [place] 1.030 (1.003-1.035) Urine Protein Tracemg/dL (NEG,TRACE) Urine Glucose (UA) Negativemg/dL (NEGATIVE) Urine Ketones Negativemg/dL (NEGATIVE) Urine Occult Blood Large (NEGATIVE) Urine Nitrite Negative (NEGATIVE) Urine Bilirubin Negative (NEGATIVE) Urine Urobilinogen Normalmg/dL (NORMAL) Urine Leukocyte Esterase Negative (NEGATIVE) Urine RBC Packed/hpf (0-2) Urine WBC 0-5/hpf (0-5) Urine Epithelial Cells Occasional/hpf (NONE-MOD) Urine Crystals None seen (NONE SEEN) Urine Bacteria None/hpf (NONE-FEW) Urine Hyaline Casts None/lpf (NONE) Urine Granular Casts None seen (NONE SEEN) Urine Waxy Casts None seen (NONE SEEN) Urine Red Blood Cell Casts None seen (NONE SEEN) Urine White Blood Cell Casts None seen (NONE SEEN) Urine Mucus Present (None Seen) Urine Trichomonas None seen (NONE SEEN) Urine Yeast None (NONE SEEN) Urinalysis Comment None Urine Culture Reflexed Not indicated Urine Dip: Negative Re-Eval/Medical Decision Med Decision/Clinical Course Med Decision/Clinical Course: 41-year-old female with recent spontaneous last month presenting with vaginal bleeding and clots. Urine is negative. Her hCG has been down trending and is near 0 today. I offered the patient a pelvic ultrasound given she did have numerous clots in her vault with no active bleeding the patient declined and requested to follow-up with her OBGYN tomorrow. Return precautions given. Source of Hx: Old records Re-Evaluation/Progress : Time of Eval: 12:25 Re-Evaluation/Progress Note: Rechecked pt. Discussed lab results and option to do an US or discahrge with pain medications. She would like to be discharged. She understands and agrees with the plan to be discharged. F/U instruction and RTER warning given. All questions addressed. Counseled Regarding: Diagnosis Discharge & Departure Primary Impression: Vaginal bleeding Disposition: Home Discharge Condition All VS Reviewed: Yes Condition: Stable Additional Instructions: Thank you for entrusting us with your care today. Your lab results are reassuring. Your hemoglobin is normal. Your HcG today was 4.31. The cause of bleeding is unclear. Follow up with Dr. Zambrano tomorrow if the symptoms persist. You Take extra strength Motrin as prescribed. Take the pain medication as prescribed. Return to the emergency department worsening pain , fever, lightheadedness, weakness, severe bleeding or any other new or concerning symptoms. Referrals: Galileo Zambrano MD (PCP) Scribe Attestation Portions of this note were transcribed by Alvin Thompson. I,, personally performed the history,physical exam and medical decision-making;I reviewed and confirmed the accuracy of the information in the transcribed note. Signed by Bebo Bar. 03/07/17 copies to: Galileo Zambrano MD, Ben M MD Mar 08, 2017 09:59 Alvin Thompson Mar 08, 2017 10:49
[2017-03-08] MEDS ORDERED: HYDROcodone-APAP 5-325 mg Tablet PO ONE (10:10)
[2017-03-08 10:30] LABS: Mean Corpuscular Hemoglobin 30.1 pg (27.0-35.0); Mean Corpuscular Volume 90.7 fL (81-100)
[2017-03-08 11:37] LABS: APPEARANCE,URINE TURBID (CLEAR,HAZY); COLOR,URINE BLOODY (YELLOW); OCCULT BLOOD,URINE LARGE (NEGATIVE); UROBILINOGEN,URINE NORMAL (NORMAL)
[2017-03-08 11:55] VITALS: BP 119/76; PULSE 70; RESP 20; O2SAT 100
[2017-03-08] MEDS ORDERED: HYDR-4003 PO (12:34)
[2017-03-08] MEDS ORDERED: IBUP800T28 PO (12:34)
[2017-03-08 12:46] VITALS: BP 119/76; PULSE 70; RESP 20; O2SAT 100
== END 2017-03-08 12:46 | disposition home or self-care (01) ==
LOC: SED 09:37
DX: N93.8 Other specified abnormal uterine and vaginal bleeding (principal); R53.1 Weakness; G43.909 Migraine, unspecified, not intractable, without status migrainosus